=== PATIENT | female | born 1990 | race Caucasian/White ===

== ENCOUNTER 2016-09-17 05:42 | Emergency (ER) | payer BC ==
[2016-09-17] MEDS ORDERED: Ketorolac 60 MG/2 ML SDV IM ONE (05:53)
[2016-09-17] MEDS ORDERED: Acetaminophen/HYDROcodone 325-7.5 MG Tab PO ONE (05:53)
--- NOTE | 2016-09-17 06:04 | EDM.PDOC ---
ED HPI GENERAL MEDICAL PROBLEM - General Chief Complaint: Back Pain or Injury Stated Complaint: BACK PAIN Time Seen by Provider: 09/17/16 05:59 - History of Present Illness INITIAL COMMENTS - FREE TEXT/NARRATIVE: HISTORY AND PHYSICAL: History of present illness: Patient 26-year-old female presents with a concern of back pain this been 1 day patient equivocates regarding prior episodes of back pain she has seen a chiropractor remotely but states that this was part of more general health considerations during a period when she was dancing. There's been no numbness no weakness colon cancer tension bowel or bladder Review of systems: As per history of present illness and below otherwise all systems reviewed and negative. Past medical history: As per history of present illness and as reviewed below otherwise noncontributory. Surgical history: As per history of present illness and as reviewed below otherwise noncontributory. Social history: No reported history of drug or alcohol abuse. Family history: As per history of present illness and as reviewed below otherwise noncontributory. Physical exam: HEENT: Atraumatic, normocephalic, pupils reactive, negative for conjunctival pallor or scleral icterus, mucous membranes moist, throat clear, neck supple, nontender, trachea midline. Lungs: Clear to auscultation, breath sounds equal bilaterally, chest nontender. Heart: S1S2, regular, negative for clicks, rubs, or JVD. Abdomen: Soft, nondistended, nontender. Negative for masses or hepatosplenomegaly. Negative for costovertebral tenderness. Pelvis: Stable nontender. Genitourinary: Deferred. Rectal: Deferred. Extremities: Atraumatic, negative for cords or calf pain. Neurovascular unremarkable. Neuro: Awake, alert, oriented. Cranial nerves II through XII unremarkable. Cerebellum unremarkable. Motor and sensory unremarkable throughout. Exam nonfocal. Back: Patient has some paraspinal tenderness at the level of the lower thoracic and lumbar spine some mild spasm noted there is no vertebral body or point tenderness patient is able stand on her toes back on her heels motor and sensory are normal Diagnostics: None Therapeutics: Toradol 60 mg IM hydrocodone 10 mg by mouth Impression: #1 back pain probable muscle skeletal etiology Definitive disposition and diagnosis as appropriate pending reevaluation and review of above. Middle Back Pain Score (Numeric/FACES): 8 - Related Data Allergies Allergy/AdvReac Type Severity Reaction Status Date / Time nickel Allergy Hives Verified 09/17/16 05:46 Home Meds: Home Meds Levothyroxine [Synthroid] 09/17/16 [History] Venlafaxine [Effexor XR] 09/17/16 [History] Past Medical History HEENT History: Reports: None Psychiatric History: Reports: Anxiety, Depression Endocrine/Metabolic History: Reports: Hypothyroidism - Past Surgical History HEENT Surgical History: Reports: LASIK Musculoskeletal Surgical History: Reports: Other (See Below) Other Musculoskeletal Surgeries/Procedures:: removal of ganglion cyst on the wrist Social & Family History - Tobacco Use Smoking Status *Q: Never Smoker Second Hand Smoke Exposure: No ED ROS GENERAL - Review of Systems Review Of Systems: ROS reveals no pertinent complaints other than HPI. ED EXAM, GENERAL - Physical Exam Exam: See Below (See dictation) Course - Vital Signs Last Recorded V/S: Last Vital Signs Temp 36.6 C 09/17/16 05:48 Pulse 89 09/17/16 05:48 Resp 16 09/17/16 05:48 BP 160/100 H 09/17/16 05:48 Pulse Ox 98 09/17/16 05:48 - Orders/Labs/Meds Meds: Medications Discontinued Medications Generic Name Dose Route Start Last Admin Trade Name Freq PRN Reason Stop Dose Admin Hydrocodone Bitart/Acetaminophen 1 tab 09/17/16 05:53 [place] 325-7.5 Mg PO 09/17/16 05:54 ONETIME ONE Ketorolac Tromethamine 60 mg 09/17/16 05:53 Toradol IM 09/17/16 05:54 ONETIME ONE Departure - Departure Time of Disposition: 06:03 Disposition: Home, Self-Care 01 Condition: Good Clinical Impression: Back pain - Discharge Information Forms: ED Department Discharge Additional Instructions: The following information is given to patients seen in the emergency department who are being discharged to home. This information is to outline your options for follow-up care. We provide all patients seen in our emergency department with a follow-up referral. The need for follow-up, as well as the timing and circumstances, are variable depending upon the specifics of your emergency department visit. If you don't have a primary care physician on staff, we will provide you with a referral. We always advise you to contact your personal physician following an emergency department visit to inform them of the circumstance of the visit and for follow-up with them and/or the need for any referrals to a consulting specialist. The emergency department will also refer you to a specialist when appropriate. This referral assures that you have the opportunity for followup care with a specialist. All of these measure are taken in an effort to provide you with optimal care, which includes your followup. Under all circumstances we always encourage you to contact your private physician who remains a resource for coordinating your care. When calling for followup care, please make the office aware that this follow-up is from your recent emergency room visit. If for any reason you are refused follow-up, please contact the [facility] emergency department at and asked to speak to the emergency department charge nurse. Ultram Flexeril Medrol as prescribed a low primary medical doctor 1-2 days return as needed as discussed
[2016-09-17 06:38] VITALS: BP 152/89
== END 2016-09-17 06:35 | disposition home or self-care (01) ==
LOC: MW.ED 05:42
DX: M62.830 Muscle spasm of back (principal); M54.6 Pain in thoracic spine; F32.9 Major depressive disorder, single episode, unspecified; E03.9 Hypothyroidism, unspecified; Z98.890 Other specified postprocedural states; Z88.8 Allergy status to other drugs, medicaments and biological substances
CPT/HCPCS: 96372; 99283; A9270; J1885; 99282